=== PATIENT | female | born 1945 | race Caucasian/White ===

== ENCOUNTER 2023-03-27 15:42 | Inpatient (IN) | payer MEDICARE, MEDICAID, SELFPAY ==
--- NOTE | ~2023-03-27 | XR_ITS ---
EXAMINATION: XR chest 1V DATE: 03/27/2023 18:22 INDICATION: Altered mental status. TECHNIQUE: A single frontal view of the chest was obtained. COMPARISON: Chest 2 views 05/01/2016 FINDINGS: The chest demonstrates clear lungs without pneumonia, pleural effusion, or pneumothorax. Th e heart size is normal. IMPRESSION: 1. No acute cardiopulmonary disease. Reviewed, dictated and finalized at location E.
--- NOTE | ~2023-03-27 | CT_ITS ---
EXAMINATION: CT brain wo con DATE: 03/27/2023 18:40 INDICATION: Altered mental status. TECHNIQUE: Computed tomography (CT) of the head was performed without intravenous contrast. The mA wa s adjusted according to patient size. Iterative reconstruction technique was employed. The dose-lengt h product was 681.00 mGy-cm. COMPARISON: None FINDINGS: There are scattered areas of low attenuation in the cerebral white matter. There is no intr acranial hemorrhage, acute infarction, or abnormal intracranial mass lesion. There is an old infarct in the right basal ganglia. The ventricles are normal in size. There are likely changes of left ocula r lens replacement surgery. The paranasal sinuses are clear. The mastoid air cells are normal. IMPRESSION: 1. Old infarct in the right basal ganglia. 2. Moderate nonspecific cerebral white matter disease, which likely represents chronic small vessel i schemic disease. Reviewed, dictated and finalized at location E. IMPRESSION: 1. Old infarct in the right basal ganglia. 2. Moderate nonspecific cerebral white matter disease, which likely represents chronic small vessel ischemic disease.
--- NOTE | ~2023-03-27 | XR_ITS ---
EXAMINATION: XR knee RT 3V DATE: 03/27/2023 18:22 INDICATION: Right knee pain. TECHNIQUE: 3 views of right knee were obtained. COMPARISON: None. FINDINGS: Bone alignment is normal. No fracture. There is mild tricompartmental osteoarthritis charac terized by tiny osteophytes. No joint space narrowing. There is chondrocalcinosis of the menisci. No knee joint effusion. IMPRESSION: 1. Mild right knee osteoarthritis. Reviewed, dictated and finalized at location E.
--- NOTE | ~2023-03-27 | XR_ITS ---
EXAMINATION: XR knee LT 3V DATE: 03/27/2023 18:22 INDICATION: Left knee pain. TECHNIQUE: 3 views of left knee were obtained. COMPARISON: None. FINDINGS: Bone alignment is normal. No fracture. There is moderate osteoarthritis of lateral compartm ent and mild osteoarthritis of medial patellofemoral compartments. There is chondrocalcinosis of the menisci. No knee joint effusion. IMPRESSION: 1. Moderate left knee osteoarthritis. Reviewed, dictated and finalized at location E.
--- NOTE | ~2023-03-27 | CT_ITS ---
EXAMINATION: CT abdomen pelvis w con DATE: 03/27/2023 18:39 INDICATION: Suprapubic tenderness. TECHNIQUE: Computed tomography (CT) of the abdomen and pelvis was performed with 100 mL Omnipaque 350 intravenous contrast. Automated exposure control and iterative reconstruction technique were employe d. The dose-length product was 639.44 mGy-cm. COMPARISON: None. FINDINGS: The visualized portions of the lung bases demonstrate mild atelectasis. No pleural effusion . The heart size is normal. No pericardial effusion. There is a small sliding hiatal hernia. The live r, gallbladder, spleen, pancreas, and adrenal glands are normal. There is cortical thinning of the ki dneys. There are cysts in the kidneys measuring up to 8 mm on the left . There is calcified atheroscl erosis of the aorta and many of the other arteries. There is an umbilical hernia containing fat. Ther e are calcified fibroids in the uterus. There is a 7.4 cm mass in the central uterus. There are no di lated loops of bowel. The appendix is normal. There is peritoneal nodularity, consistent with carcino matosis. There is a small volume of pelvic ascites. There are no pathologically enlarged lymph nodes. 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 There is severe thoracic and lumbar spondylosis. IMPRESSION: 1. Peritoneal carcinomatosis. Small volume of pelvic ascites. 2. 7.4 cm mass in the central uterus suspicious for endometrial carcinoma or sarcoma. Reviewed, dictated and finalized at location E. IMPRESSION: 1. Peritoneal carcinomatosis. Small volume of pelvic ascites. 2. 7.4 cm mass in the central uterus suspicious for endometrial carcinoma or sa rcoma.
--- NOTE | ~2023-03-27 | XR_ITS ---
EXAMINATION: XR hip BI 2V w AP pelvis DATE: 03/27/2023 18:22 INDICATION: Fall. Altered mental status. TECHNIQUE: An anteroposterior pelvis and 2 views of each hip were obtained. COMPARISON: None. FINDINGS: There is lumbar levoscoliosis and severe spondylosis. No fracture. There is advanced osteoa rthritis of the hips. Remodeling of right acetabulum and right femoral head results in relative short ening of right lower limb. Pelvic calcifications are likely uterine fibroids. IMPRESSION: 1. Advanced osteoarthritis of the hips. Reviewed, dictated and finalized at location E.
[2023-03-27 15:38] VITALS: BP 178/88; PULSE 86; RESP 16; TEMP 36.9; O2SAT 98
--- NOTE | 2023-03-27 15:59 | ECG_ITS ---
Measurements Intervals [place] Rate: 85 P: 16 WI: 152 QRS: 6 QRSD: 90 T: 63 QT: 405 QTc: 483 Interpretive Statements SINUS RHYTHM NONSPECIFIC ST & T-WAVE ABNORMALITY- HIGH LATERAL LEADS BASELINE ARTIFACT- II, III, AVF BORDERLINE ECG NO PREVIOUS ECG AVAILABLE FOR COMPARISON Electronically Signed On 03-27-2023 16:19:34 CDT by Arjun Hedrick D.O.
[2023-03-27 16:39] LABS: Basophils Absolute Auto 0.1 K/mm3 (0.0-0.1); Basophils Percent Auto 0.4 % (0.2-1.2); Eosinophils Absolute Auto 0.1 K/mm3 (0-0.3); Eosinophils Percent Auto 0.4 % (0-4.4); Hematocrit 40.5 % (37.0-47.0); Hemoglobin 13.9 g/dL (12.0-15.0); Immature Granulocyte Absolute 0.04 K/mm3 (0.00-0.031); Immature Granulocyte Percent A 0.3 % (0-0.5); Lymphocytes Absolute Auto 0.85 K/mm3 (0.9-3.2); Lymphocytes Percent Auto 7.1 % (18.3-44.2); Mean Corpuscular HGB Conc 34.3 g/dl (32-36); Mean Corpuscular Hemoglobin 30.3 pg (26-34); Mean Corpuscular Volume 88.4 fl (80-100); Mean Platelet Volume 8.8 fl (7.4-10.4); Monocytes Percent Auto 8.1 % (2.6-8.5); Neutrophils Percent Auto 83.7 % (45.5-73.1); Platelet Count Result 328 k/mm3 (150-375); Red Blood Count 4.58 M/mm3 (4.2-5.4); Red Cell Distribution Width 12.3 % (11.5-14.5); White Blood Count 11.9 K/mm3 (4.5-10.0)
[2023-03-27 16:40] LABS: Appearance Urine Clear (Clear); Bilirubin Urine 1+ (Negative); Blood Urine 2+ (Negative); Color Urine Yellow (Yellow); Glucose Urine UA Trace mg/dL (Negative); Ketones Urine 2+ mg/dL (Negative); Leukocyte Esterase Ur 1+ LEU/UL (Negative); Nitrate Urine Positive (Negative); Protein Urine 1+ mg/dL (Negative); Specific Grav Ur 1.025 (1.001-1.035)
[2023-03-27 16:49] LABS: Alanine Aminotransferase 28 U/L (6-35); Albumin Level 4.3 g/dL (3.5-5.1); Alkaline Phosphatase 118 U/L (38-126); Anion Gap 11 mmol/L (8-16); Aspartate Amino Transferase 36 U/L (14-36); Bilirubin,Total 0.7 mg/dL (0.2-1.3); Blood Urea Nitrogen 12 mg/dL (7-17); Calcium 9.3 mg/dL (8.4-10.2); Carbon Dioxide 26 mmol/L (22-30); Chloride 102 mmol/L (98-107); Estimated CRCL calculation 67 ml/min; Estimated Glomerular Filt Rate > 60; Glucose 139 mg/dL (65-110); Potassium 3.2 mmol/L (3.4-5.0); Prothrombin Time 13.4 Seconds (11.1-14.7); Sodium 139 mmol/L (137-145)
[2023-03-27 16:50] LABS: Partial Thromboplastin Time 26.1 SECONDS (22.3-36.8)
[2023-03-27 17:01] LABS: Bacteria Urine 4+ /hpf; Need Manual Microscopic Reviewed; RBC Urine 21-50 /hpf (0-2); Squamous Epithelial Cell Urine None seen /hpf (Few); WBC Urine 51-100 /hpf
[2023-03-27 17:03] LABS: Add Urine Microscopic? YES
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
--- NOTE | 2023-03-27 18:19 | PC.NURSE ---
PT STRAIGHT CATH WITH SCANT AMOUNT OF URINE.
[2023-03-27] MEDS: SODIUM CHLORIDE 0.9% IV 1,000 ML 999 ML IV CONT (18:22)
--- NOTE | 2023-03-27 18:30 | PC.NURSE ---
PT TO CT SCAN.
--- NOTE | 2023-03-27 19:05 | PC.NURSE ---
this RN assumed care of patient.
[2023-03-27 19:33] LABS: Creatine Kinase 256 U/L (30-135)
[2023-03-27 19:34] LABS: Lactic Acid Reflex 1.4 mmol/L (0.7-2.0)
[2023-03-27 19:46] LABS: Troponin I 0.013 ng/mL (0.000-0.034)
[2023-03-27] MEDS: POTASSIUM CHLORIDE 20 MEQ PACKET (FOR LIQUID) 40 MEQ PO (20:09)
--- NOTE | 2023-03-27 21:17 | PM.IMHP ---
H&P: HPI History of Present Illness Date/Time: 03/27/23 21:17 Chief Complaint: Altered mental status Narrative: This is a 77-year-old female with known significant past medical history patient was brought to the emergency room after daughter came to check on her for a well-being check up and found the house in disarray patient was in a different room to her usual and was confused did not know where she was had visual hallucinations was seeing people that were not there. According to daughter patient had been in her usual state of health up until this morning. in emergency room patient was found to have a urinary tract infection a CT of abdomen and pelvis was reported as: EXAMINATION: CT abdomen pelvis w con DATE: 03/27/2023 18:39 INDICATION: Suprapubic tenderness. TECHNIQUE: Computed tomography (CT) of the abdomen and pelvis was performed with 100 mL Omnipaque 350 intravenous contrast. Automated exposure control and iterative reconstruction technique were employed. The dose-length product was 639.44 mGy-cm. COMPARISON: None. FINDINGS: The visualized portions of the lung bases demonstrate mild atelectasis. No pleural effusion. The heart size is normal. No pericardial effusion. There is a small sliding hiatal hernia. The liver, gallbladder, spleen, pancreas, and adrenal glands are normal. There is cortical thinning of the kidneys. There are cysts in the kidneys measuring up to 8 mm on the left . There is calcified atherosclerosis of the aorta and many of the other arteries. There is an umbilical hernia containing fat. There are calcified fibroids in the uterus. There is a 7.4 cm mass in the central uterus. There are no dilated loops of bowel. The appendix is normal. There is peritoneal nodularity, consistent with carcinomatosis. There is a small volume of pelvic ascites. There are no pathologically enlarged lymph nodes. 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 There is severe thoracic and lumbar spondylosis. IMPRESSION: 1. Peritoneal carcinomatosis. Small volume of pelvic ascites. 2. 7.4 cm mass in the central uterus suspicious for endometrial carcinoma or sarcoma. EXAMINATION: CT brain wo con DATE: 03/27/2023 18:40 INDICATION: Altered mental status. TECHNIQUE: Computed tomography (CT) of the head was performed without intravenous contrast. The mA was adjusted according to patient size. Iterative reconstruction technique was employed. The dose-length product was 681.00 mGy-cm. COMPARISON: None FINDINGS: There are scattered areas of low attenuation in the cerebral white matter. There is no intracranial hemorrhage, acute infarction, or abnormal intracranial mass lesion. There is an old infarct in the right basal ganglia. The ventricles are normal in size. There are likely changes of left ocular lens replacement surgery. The paranasal sinuses are clear. The mastoid air cells are normal. IMPRESSION: 1. Old infarct in the right basal ganglia. 2. Moderate nonspecific cerebral white matter disease, which likely represents chronic small vessel ischemic disease. Review of Systems Review of Systems: ROS unobtainable: Yes unobtainable due to mental status (Delirious) Meds Home Medications and Allergies Home Medications Medication Instructions Recorded Confirmed Type citalopram 40 mg tablet 40 mg PO DAILY 03/27/23 03/27/23 History gabapentin 100 mg capsule 100 mg PO DAILY 03/27/23 03/27/23 History gabapentin 300 mg capsule 300 mg PO HS 03/27/23 03/27/23 History hydroxyzine HCl 25 mg tablet 25 mg PO TID 03/27/23 03/27/23 History lidocaine 5 % topical patch 1 patch topical DAILY 03/27/23 03/27/23 History losartan 50 mg tablet 50 mg PO DAILY 03/27/23 03/27/23 History lovastatin 40 mg tablet 40 mg PO HS 03/27/23 03/27/23 History Allergies Allergy/AdvReac Type Severity Reaction Status Date / Time No Known Allergies Allergy Verified 03/27/23 18:14 Vital Signs Vital Signs - 24 hr 03/27/23 15:38 Temperature 98.4 F
[2023-03-27 22:25] VITALS: BP 159/64; PULSE 89; RESP 17; O2SAT 98
[2023-03-27 22:54] VITALS: BMI 26.2
[2023-03-27 22:55] VITALS: BP 180/72; PULSE 84; RESP 20; TEMP 36.7; O2SAT 98
--- NOTE | 2023-03-27 23:08 | ADMGEN ---
This patient, Khloe Poe, was admitted to 2 Medical Room 255-01. Patient/family oriented to hospital policies and general routines including ID bracelet, bed and alarms, visiting hours, pain management, procedures, bathroom and other care routines, personal items, smoking policy, room service/diet, and visiting hours. Information on how to activate the Rapid Response Team has been discussed. Patient/Family are encouraged to report perceived risks to care and to ask questions if they do not understand what they are told or what they should do.
[2023-03-28 04:02] VITALS: BP 153/59; PULSE 72; RESP 20; TEMP 36.3; O2SAT 93
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
[2023-03-28 07:40] LABS: Basophils Percent Auto 0.5 % (0.2-1.2); Eosinophils Absolute Auto 0.3 K/mm3 (0-0.3); Eosinophils Percent Auto 3.4 % (0-4.4); Hemoglobin 12.6 g/dL (12.0-15.0); Immature Granulocyte Absolute 0.04 K/mm3 (0.00-0.031); Immature Granulocyte Percent A 0.5 % (0-0.5); Lymphocytes Absolute Auto 1.26 K/mm3 (0.9-3.2); Lymphocytes Percent Auto 14.4 % (18.3-44.2); Mean Corpuscular HGB Conc 34.1 g/dl (32-36); Mean Corpuscular Hemoglobin 30.9 pg (26-34); Mean Corpuscular Volume 90.7 fl (80-100); Mean Platelet Volume 8.5 fl (7.4-10.4); Monocytes Absolute Auto 0.9 K/mm3 (0.1-0.6); Monocytes Percent Auto 10.3 % (2.6-8.5); Neutrophils Absolute Auto 6.2 K/mm3 (1.3-6.7); Neutrophils Percent Auto 70.9 % (45.5-73.1); Platelet Count Result 282 k/mm3 (150-375); Red Blood Count 4.08 M/mm3 (4.2-5.4); Red Cell Distribution Width 12.7 % (11.5-14.5); White Blood Count 8.8 K/mm3 (4.5-10.0)
[2023-03-28 07:54] LABS: Anion Gap 4 mmol/L (8-16); Blood Urea Nitrogen 13 mg/dL (7-17); Calcium 8.6 mg/dL (8.4-10.2); Carbon Dioxide 27 mmol/L (22-30); Chloride 108 mmol/L (98-107); Estimated CRCL calculation 54 ml/min; Estimated Glomerular Filt Rate > 60; Glucose 95 mg/dL (65-110); Potassium 3.4 mmol/L (3.4-5.0); Sodium 139 mmol/L (137-145)
[2023-03-28] MEDS: POTASSIUM CHLORIDE 20 MEQ ER TABLET 40 MEQ PO (09:29)
[2023-03-28] MEDS: CITALOPRAM HYDROBROMIDE 20 MG TABLET 40 MG PO (09:29)
[2023-03-28] MEDS: LOSARTAN POTASSIUM 50 MG TABLET PO (09:30)
[2023-03-28] MEDS: hydrOXYzine HCL 25 MG TABLET PO ×3 (09:30→16:54)
[2023-03-28] MEDS: ENOXAPARIN 40 MG/0.4 ML SYRINGE SUB-Q (09:30)
[2023-03-28 09:41] VITALS: RESP 20; O2SAT 94
[2023-03-28] MEDS: GABAPENTIN 100 MG CAPSULE PO (11:59)
[2023-03-28 14:45] VITALS: BP 151/60; PULSE 69; RESP 16; TEMP 36.9; O2SAT 95
[2023-03-28] MEDS: CARBAMIDE PEROXIDE 6.5% OT SOLN 15 ML BTL 5 DROP LEFT EAR (16:54)
[2023-03-28 19:34] VITALS: BP 131/71; PULSE 76; RESP 17; TEMP 36.1; O2SAT 97
[2023-03-28] MEDS: LOVASTATIN 20 MG TABLET 40 MG PO (20:32)
[2023-03-28] MEDS: DOCUSATE SODIUM 100 MG CAPSULE PO (20:32)
[2023-03-28] MEDS: GABAPENTIN 300 MG CAPSULE PO (20:32)
[2023-03-29 05:20] LABS: Basophils Absolute Auto 0.1 K/mm3 (0.0-0.1); Basophils Percent Auto 0.8 % (0.2-1.2); Eosinophils Absolute Auto 0.3 K/mm3 (0-0.3); Eosinophils Percent Auto 4.2 % (0-4.4); Hematocrit 37.6 % (37.0-47.0); Hemoglobin 12.3 g/dL (12.0-15.0); Immature Granulocyte Absolute 0.05 K/mm3 (0.00-0.031); Immature Granulocyte Percent A 0.6 % (0-0.5); Lymphocytes Absolute Auto 1.07 K/mm3 (0.9-3.2); Lymphocytes Percent Auto 13.5 % (18.3-44.2); Mean Corpuscular HGB Conc 32.7 g/dl (32-36); Mean Corpuscular Volume 91.7 fl (80-100); Mean Platelet Volume 8.6 fl (7.4-10.4); Monocytes Absolute Auto 0.9 K/mm3 (0.1-0.6); Monocytes Percent Auto 10.8 % (2.6-8.5); Neutrophils Absolute Auto 5.6 K/mm3 (1.3-6.7); Neutrophils Percent Auto 70.1 % (45.5-73.1); Platelet Count Result 287 k/mm3 (150-375); Red Cell Distribution Width 12.4 % (11.5-14.5); White Blood Count 7.9 K/mm3 (4.5-10.0)
[2023-03-29 05:27] VITALS: BP 145/65; PULSE 64; RESP 17; TEMP 36.3; O2SAT 95
[2023-03-29 05:35] LABS: Alanine Aminotransferase 28 U/L (6-35); Albumin Level 3.6 g/dL (3.5-5.1); Alkaline Phosphatase 92 U/L (38-126); Anion Gap 7 mmol/L (8-16); Aspartate Amino Transferase 33 U/L (14-36); Bilirubin,Total 0.5 mg/dL (0.2-1.3); Blood Urea Nitrogen 13 mg/dL (7-17); Calcium 8.4 mg/dL (8.4-10.2); Carbon Dioxide 26 mmol/L (22-30); Chloride 105 mmol/L (98-107); Estimated CRCL calculation 64 ml/min; Estimated Glomerular Filt Rate > 60; Glucose 107 mg/dL (65-110); Potassium 3.6 mmol/L (3.4-5.0); Sodium 138 mmol/L (137-145)
[2023-03-29 08:25] VITALS: BP 152/58; PULSE 72; RESP 16; TEMP 36.6; O2SAT 96
[2023-03-29] MEDS: polyethylene glycoL 3350 17 GM POWD.PACK PO (08:28)
[2023-03-29] MEDS: hydrOXYzine HCL 25 MG TABLET PO ×3 (08:29→17:50)
[2023-03-29] MEDS: LOSARTAN POTASSIUM 50 MG TABLET PO (08:29)
[2023-03-29] MEDS: ENOXAPARIN 40 MG/0.4 ML SYRINGE SUB-Q (08:29)
[2023-03-29] MEDS: DOCUSATE SODIUM 100 MG CAPSULE PO ×2 (08:29→20:52)
[2023-03-29] MEDS: CARBAMIDE PEROXIDE 6.5% OT SOLN 15 ML BTL 5 DROP LEFT EAR ×2 (08:29→17:50)
[2023-03-29] MEDS: CITALOPRAM HYDROBROMIDE 20 MG TABLET 40 MG PO (08:29)
[2023-03-29] MEDS: LIDOCAINE 5% PATCH 2 PATCH TOPICAL (08:30)
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
[2023-03-29] MEDS: GABAPENTIN 100 MG CAPSULE PO (12:48)
[2023-03-29] MEDS: EUCERIN CREAM 120 GM JAR 1 APPLIC TOPICAL (12:49)
[2023-03-29 14:40] VITALS: BP 129/61; PULSE 70; RESP 16; TEMP 36.4; O2SAT 97
[2023-03-29 20:00] VITALS: BP 166/58; PULSE 77; RESP 17; TEMP 36.1; O2SAT 95
[2023-03-29] MEDS: ACETAMINOPHEN 325 MG TABLET 650 MG PO (20:52)
[2023-03-29] MEDS: LOVASTATIN 20 MG TABLET 40 MG PO (20:52)
[2023-03-29] MEDS: GABAPENTIN 300 MG CAPSULE PO (21:00)
[2023-03-30 04:42] VITALS: BP 147/54; PULSE 63; RESP 16; TEMP 36.1; O2SAT 97
[2023-03-30 05:49] LABS: Basophils Absolute Auto 0.1 K/mm3 (0.0-0.1); Basophils Percent Auto 0.7 % (0.2-1.2); Eosinophils Absolute Auto 0.3 K/mm3 (0-0.3); Eosinophils Percent Auto 3.9 % (0-4.4); Hematocrit 36.7 % (37.0-47.0); Hemoglobin 12.1 g/dL (12.0-15.0); Immature Granulocyte Absolute 0.04 K/mm3 (0.00-0.031); Immature Granulocyte Percent A 0.6 % (0-0.5); Lymphocytes Absolute Auto 1.02 K/mm3 (0.9-3.2); Lymphocytes Percent Auto 14.8 % (18.3-44.2); Mean Corpuscular Hemoglobin 30.2 pg (26-34); Mean Corpuscular Volume 91.5 fl (80-100); Mean Platelet Volume 9.1 fl (7.4-10.4); Monocytes Absolute Auto 0.8 K/mm3 (0.1-0.6); Monocytes Percent Auto 11.6 % (2.6-8.5); Neutrophils Absolute Auto 4.7 K/mm3 (1.3-6.7); Neutrophils Percent Auto 68.4 % (45.5-73.1); Platelet Count Result 298 k/mm3 (150-375); Red Blood Count 4.01 M/mm3 (4.2-5.4); Red Cell Distribution Width 12.4 % (11.5-14.5); White Blood Count 6.9 K/mm3 (4.5-10.0)
[2023-03-30 06:00] LABS: Alanine Aminotransferase 26 U/L (6-35); Albumin Level 3.6 g/dL (3.5-5.1); Alkaline Phosphatase 97 U/L (38-126); Anion Gap 2 mmol/L (8-16); Aspartate Amino Transferase 27 U/L (14-36); Bilirubin,Total 0.4 mg/dL (0.2-1.3); Blood Urea Nitrogen 13 mg/dL (7-17); Calcium 8.4 mg/dL (8.4-10.2); Carbon Dioxide 31 mmol/L (22-30); Chloride 105 mmol/L (98-107); Estimated CRCL calculation 54 ml/min; Estimated Glomerular Filt Rate > 60; Glucose 112 mg/dL (65-110); Potassium 3.7 mmol/L (3.4-5.0); Sodium 138 mmol/L (137-145)
[2023-03-30] MEDS: CITALOPRAM HYDROBROMIDE 20 MG TABLET 40 MG PO (08:50)
[2023-03-30] MEDS: CARBAMIDE PEROXIDE 6.5% OT SOLN 15 ML BTL 5 DROP LEFT EAR (08:50)
[2023-03-30] MEDS: hydrOXYzine HCL 25 MG TABLET PO ×2 (08:50→12:20)
[2023-03-30] MEDS: LOSARTAN POTASSIUM 50 MG TABLET PO (08:51)
[2023-03-30] MEDS: buPROPion HCL XL (24 HR) 150 MG TABCR 300 MG PO (08:51)
[2023-03-30] MEDS: ENOXAPARIN 40 MG/0.4 ML SYRINGE SUB-Q (08:51)
[2023-03-30] MEDS: DOCUSATE SODIUM 100 MG CAPSULE PO (08:52)
[2023-03-30] MEDS: LIDOCAINE 5% PATCH 2 PATCH TOPICAL (08:53)
[2023-03-30] MEDS: ACETAMINOPHEN 325 MG TABLET 650 MG PO (09:08)
[2023-03-30 09:17] VITALS: O2SAT 95
[2023-03-30] MEDS: GABAPENTIN 100 MG CAPSULE PO (12:20)
[2023-03-30 14:15] VITALS: BP 131/65; PULSE 70; RESP 18; TEMP 36.8; O2SAT 96
[2023-03-30] MEDS: NITROFURANTOIN MONOHYD MACROCR 100 MG CAP PO (14:52)
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
== END 2023-03-30 15:40 | disposition home health service (06) | DRG 690 ==
LOC: ANHED 17:16 → ANH2MED 22:17
PROVIDERS: Emergency Medicine; Admitting Provider Internal Medicine; Emergency Provider Physician Assistant; Visit Provider Nurse Practitioner Acute Care
DX: N30.00 Acute cystitis without hematuria (principal); C78.6 Secondary malignant neoplasm of retroperitoneum and peritoneum; E78.5 Hyperlipidemia, unspecified; F17.210 Nicotine dependence, cigarettes, uncomplicated; H61.22 Impacted cerumen, left ear; I10 Essential (primary) hypertension; K59.00 Constipation, unspecified; N85.8 Other specified noninflammatory disorders of uterus; R41.0 Disorientation, unspecified; R44.1 Visual hallucinations
CPT/HCPCS: 36415; 70450; 71045; 73521; 73562; 74177; 80048; 80053; 81001; 82550; 83605; 83735; 84443; 84484; 85025; 85610; 85730; 87040; 87086; 87088; 93005; 97162; 97165; 99285; A9270; G0378; J0696; J1650; J7030; Q9967

== ENCOUNTER 2023-04-06 14:48 | Outpatient (RCR) | payer MEDICARE, MEDICAID, SELFPAY ==
--- NOTE | 2023-04-06 20:09 | PDONCCN ---
HPI - Date of Consult Date/Time: 04/06/23 20:09 Requesting Physician: Irina Michaels MD Primary Care Provider: UNKNOWN,DOCTOR - Consult Narrative Reason for consult: Uterine Mass and Peritoneal carcinomatosis Narrative: Khloe Poe is a 77 year old female who presented to see us in oncology on 04/06/23 for further management of uterine mass an peritoneal carcinomatosis. She is accompanied by her daughter today. Patient was hospitalized 03/27/23-03/30/23 for altered mental status and UTI. During the hospitalization she underwent CT scan of abdomen and pelvis on 03/27/23 which showed a 7.4 cm mass in the central uterine mass with peritoneal nodularity concerning for carcinomatosis. Full CT report is below. Patient is here for further management. Patient reports that UTI has resolved and she feels well without any dysuria or hematuria. She denies vaginal spotting or abdominal pain. She denies significant weight loss. She has weakness and states that she is not able to keep up with cleaning of her house and contemplating cleaning services. She has bilateral knee pain which limits her mobility but she continues to live independently. IMAGING: CT abdomen pelvis w con DATE: 03/27/2023 18:39 INDICATION: Suprapubic tenderness. TECHNIQUE: Computed tomography (CT) of the abdomen and pelvis was performed with 100 mL Omnipaque 350 intravenous contrast. Automated exposure control and iterative reconstruction technique were employed. The dose-length product was 639.44 mGy-cm. COMPARISON: None. FINDINGS: The visualized portions of the lung bases demonstrate mild atelectasis. No pleural effusion. The heart size is normal. No pericardial effusion. There is a small sliding hiatal hernia. The liver, gallbladder, spleen, pancreas, and adrenal glands are normal. There is cortical thinning of the kidneys. There are cysts in the kidneys measuring up to 8 mm on the left . There is calcified atherosclerosis of the aorta and many of the other arteries. There is an umbilical hernia containing fat. There are calcified fibroids in the uterus. There is a 7.4 cm mass in the central uterus. There are no dilated loops of bowel. The appendix is normal. There is peritoneal nodularity, consistent with carcinomatosis. There is a small volume of pelvic ascites. There are no pathologically enlarged lymph nodes. 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 There is severe thoracic and lumbar spondylosis. IMPRESSION: 1. Peritoneal carcinomatosis. Small volume of pelvic ascites. 2. 7.4 cm mass in the central uterus suspicious for endometrial carcinoma or sarcoma. Review of Systems - Review of Systems Patient states that she suffers from bilateral knee pain which limits her mobility but she lives independently. UTI has resolved and she has normal flow of urine without any dysuria or hematuria. She denies fever, chills, night sweats. Denies weight loss. Denies abdominal pain or vaginal spotting. She denies hematochezia or melena. Denies chest pain, dyspnea, cough or hemoptysis. She has weakness and is not able to keep up with cleaning of her house. Denies rash, lower extremity edema. There is no groin lymphadenopathy. [facility] - Social History Social History: Social History (Last Reviewed 03/27/23 @ 17:50 by Aye Finley PA-C) Alcohol Use: Alcohol intake: never Substance Use: Substance use: never Others: Spiritual care concerns: No Smoking Status: Smoking status: Current every day smoker Tobacco type: cigarettes Smoking Pack-years: Smoking packs per day: 0.5 Smoking cigarettes per day: 10.0 Social Determinants of Health: Has the Lack of Transportation Kept You From Medical Appointments or From Getting Medications?: No Within the Past 12 Months, Were You Worried Whether Your Food Would Run Out Before You Got Money to Buy More?: Never True What is Your Housing Situation Today?: I Have Housing Are You Wor
== END 2023-04-13 12:50 ==
LOC: AMCINF 14:48
PROVIDERS: Visit Provider Internal Medicine
DX: C76.8 Malignant neoplasm of other specified ill-defined sites (principal); N85.8 Other specified noninflammatory disorders of uterus
CPT/HCPCS: 99199